=== PATIENT | male | born 1955 | race Two or more races ===

== ENCOUNTER 2023-06-23 12:21 | Emergency (ER) | payer MEDICAID ==
[~2023-06-23] VITALS: Ht 167.6 cm; Wt 86.3 kg
[2023-06-23 13:55] LABS: Basophils # (auto) 0 10 ^3/uL (0-0.2); Eosinophils # (auto) 0 10 ^3/uL (0-0.8); Eosinophils % (auto) 0.6 % (0.0-7.0); Lymphocytes # (auto) 1.8 10 ^3/uL (0.4-5.4); Monocytes # (auto) 0.4 10 ^3/uL (0-1.3); Neutrophils # (auto) 3.1 10 ^3/uL (1.6-8.6); Neutrophils % (auto) 57.9 % (37.0-80.0); White Blood Cell 5.4 10^3/uL (4.4-10.8)
[2023-06-23 13:57] LABS: Basophils % (auto) 0.5 % (0.0-2.0); Lymphocytes % (auto) 33.8 % (10.0-50.0); Mean Corpuscular Hemoglobin 35.2 pg (28.0-32.0); Mean Corpuscular Hgb Conc. 34.9 g/dL (32.0-36.0); Mean Corpuscular Volume 100.9 fL (80.0-100.0); Monocytes % (auto) 7.2 % (0.0-12.0); Nucleated Red Blood Cells % 0.2 %; Red Blood Cells 4.56 10^6/uL (4.5-5.90); Red Cell Distribution Width 15.1 % (11.8-14.3)
[2023-06-23 14:32] LABS: Chloride 105 mmol/L (98-107); Potassium 3.4 mmol/L (3.5-5.1); Sodium 141 mmol/L (136-145)
[2023-06-23 14:33] LABS: Anion Gap 7 (5-15); Calcium 9.9 mg/dL (8.5-10.1); Carbon Dioxide 29 mmol/L (20-30)
[2023-06-23 14:38] LABS: BUN/Creatinine Ratio 13.4 (10.0-20.0); Blood Urea Nitrogen 11 mg/dL (9-23); Glucose 93 mg/dL (74-106)
[2023-06-23] MEDS: LISINOPRIL 20 MG TAB PO ONE (21:36)
[2023-06-23] MEDS: amLODIPine BESYLATE 5 MG TAB PO ONE (21:36)
[2023-06-23 21:46] VITALS: BP 154/116; PULSE 93; RESP 18; O2SAT 97
[2023-06-23] MEDS: NITROGLYCERIN 0.4 MG SL TAB SL ONE (23:18)
[2023-06-23] MEDS: LABETALOL HCL 5 MG/ML 4ML SYRINGE IV ONE (23:39)
[2023-06-23] MEDS: MAGNESIUM OXIDE 400 MG TAB PO ONE (23:43)
== END 2023-06-24 01:13 | disposition home or self-care (01) ==
LOC: ER 12:21 → EDBD 12:21 → ER 06-24 01:12
DX: I10 Essential (primary) hypertension (principal); R07.89 Other chest pain
CPT/HCPCS: 36415; 71045; 80048; 84484; 85025; 93005; J3490